=== PATIENT | female | born 1995 | race Caucasian/White ===

== ENCOUNTER 2017-06-20 22:14 | Emergency (ER) | payer OTHER ==
[~2017-06-20] VITALS: Ht 170.2 cm; Wt 65.1 kg
[2017-06-20 22:19] VITALS: BP 146/81; PULSE 120; RESP 18; TEMP 99.4; O2SAT 98
[2017-06-20] MEDS ORDERED: DESOTAB7 PO (22:45)
[2017-06-20] MEDS ORDERED: ALPRAZolam 1 MG TAB PO ONE (22:45)
[2017-06-20] MEDS ORDERED: VIST50CA PO (22:52)
[2017-06-20 22:56] VITALS: PULSE 90; RESP 18; O2SAT 99
[2017-06-20] MEDS ORDERED: PROC10TA PO (22:58)
--- NOTE | 2017-06-20 22:59 | PD ---
HPI Chief Complaint: GI Complaint Time Seen by Provider: 22:36 Travel History International Travel<30 days: No Contact w/Intl Traveler<30days: No Traveled to known affect area: No History of Present Illness HPI The patient is a 21-year-old female that has a history of anxiety. She has anxiety about her health. She has been anxious most the day and has been nauseated. She had nonvertiginous dizziness last night. The dizziness is only lightheaded and there is no syncopal or near syncopal spell associated with this. The patient states she is extremely anxious. She has been drinking water and Powerade today and is fairly well-hydrated. She did not vomit and she has not had any fever today. There is never been any vertigo. She denies any dysuria, frequency or urgency. Her last missed her period was one week ago and she is taking control pills correctly. She recently had blood work by her primary care physician and apparently it was all normal. [facility] Social History Tobacco Use: No Allergies-Medications (Allergen,Severity, Reaction): Coded Allergies: No Known Allergies (Verified Allergy, Mild, 06/20/17) Reported Meds & Prescriptions Reported Meds & Active Scripts Active Reported Enskyce (Desogestrel-Ethinyl Estradiol) 0.15-30 Mg-Mcg Tab 1 Tab PO DAILY Review of Systems Except as stated in HPI: all other systems reviewed are Neg Physical Exam Narrative GENERAL: The patient is alert, very anxious, oriented 3 in no apparent distress. She has some slight pressure of speech but does not appear delusional. Her vital signs show heart rate of 120 with blood pressure 146/81. SKIN: Focused skin assessment warm/dry. No needle tracks nor wrist slash castaneda are present. HEAD: Atraumatic. Normocephalic. EYES: Pupils equal and round. No scleral icterus. No injection or drainage. ENT: No nasal bleeding or discharge. Mucous membranes pink and moist. The thyroid appears normal. NECK: Trachea midline. No JVD. CARDIOVASCULAR: Regular rate, sinus tachycardia of 105 when I see the patient. No murmur appreciated. RESPIRATORY: No accessory muscle use. Clear to auscultation. Breath sounds equal bilaterally. GASTROINTESTINAL: Abdomen soft, non-tender, nondistended. Hepatic and splenic margins not palpable. No guarding or rebound is present. MUSCULOSKELETAL: No obvious deformities. No clubbing. No cyanosis. No edema. NEUROLOGICAL: Awake and alert. No obvious cranial nerve deficits. Motor grossly within normal limits. Normal speech. PSYCHIATRIC: Appropriate mood and affect; insight and judgment normal. Data Data Last Documented VS Vital Signs Date Time Temp Pulse Resp B/P (MAP) Pulse Ox O2 Delivery O2 Flow Rate FiO2 06/20/17 22:19 99.4 120 18 146/81 (102) 98 Orders Orders Alprazolam (Xanax) (06/20/17 22:45) [facility] Medical Decision Making Medical Screen Exam Complete: Yes Emergency Medical Condition: Yes Medical Record Reviewed: Yes Differential Diagnosis Anxiety, hypoglycemia, hyperthyroid, illicit drug side effect Narrative Course The patient does not use drugs according to her history and does not appear to use drugs. She does not appear to be hyperthyroid or hypoglycemic, this was recently checked apparently by her primary care physician. The patient appears to have anxiety. Diagnosis Primary Impression: Anxiety about health Additional Instructions: Follow-up with your primary care physician next week. This appears to be anxiety and both the Vistaril and the nausea medication can make you somewhat sleepy. Med/Other Pt SpecificInfo: Prescription(s) given Scripts Prochlorperazine Maleate (Prochlorperazine Maleate) 10 Mg Tab 10 MG PO Q6H Y for NAUSEA OR VOMITING, #30 TAB 0 Refills Prov: Camron Escobar MD 06/20/17 Hydroxyzine Pamoate (Vistaril) 50 Mg Cap 50 MG PO TID Y for ANXIETY, #30 CAP 0 Refills Prov: Camron Escobar MD 06/20/17 Disposition: 01 DISCHARGE HOME Condition: Stable Camron Escobar MD Jun 20, 2017 22:59
[2017-06-20] MEDS ORDERED: ALPRAZolam 0.5 MG TAB PO ONE (23:00)
== END 2017-06-20 23:32 | disposition home or self-care (01) ==
LOC: PHED 22:14
DX: F41.9 Anxiety disorder, unspecified (principal)
CPT/HCPCS: 99284